=== PATIENT | female | born 1935 | race Caucasian/White ===

== ENCOUNTER 2019-05-30 17:10 | Emergency (ER) | payer MEDICARE ==
[~2019-05-30] VITALS: Ht 170.2 cm; Wt 83.9 kg
[~2019-05-30 17:10] MED LIST: CONEST.625; FLUV80CR
== END 2019-05-30 18:43 | disposition home or self-care (01) ==
LOC: ER 17:10
DX: S61.012A Laceration without foreign body of left thumb without damage to nail, initial encounter (principal); Z95.0 Presence of cardiac pacemaker; Z88.5 Allergy status to narcotic agent; W29.0XXA Contact with powered kitchen appliance, initial encounter
CPT/HCPCS: 12001; 99282-25